=== PATIENT | male | born 1995 | race Caucasian/White ===

== ENCOUNTER 2020-04-11 17:05 | Emergency (ER) | payer MEDICAID ==
[~2020-04-11] VITALS: Ht 182.9 cm; Wt 72.7 kg
[~2020-04-11 17:05] MED LIST: BACLOFEN10 MG PO; VISTARIL25 MG PO
[2020-04-11 17:17] VITALS: Ht 182.9 cm; Wt 72.7 kg
[2020-04-11 17:58] LABS: BILIRUBIN NEGATIVE (NEGATIVE); KETONE NEGATIVE (NEGATIVE); NITRITE NEGATIVE (NEGATIVE); UROBILINOGEN NORMAL mg/dL (< 2)
[2020-04-11 17:59] LABS: BASOPHILS 0.4 % (0-2); EOSINOPHILS 6.6 % (0-7); HEMATOCRIT 45.2 % (42.0-54.0); HEMOGLOBIN 15.5 g/dL (13.5-17.5); IMMATURE GRANULOCYTES 0.1 % (0-5); LYMPHOCYTE ABS# 2.12 10x3/uL (1.32-3.57); LYMPHOCYTES 31.7 % (15-50); MCH 31.5 pg (26.0-34.0); MCHC 34.3 g/dL (31.0-37.0); MCV 91.9 fL (80.0-100.0); MEAN PLATELET VOLUME 11.6 fL (7.4-10.4); MONOCYTES 5.5 % (2-11); NEUTROPHIL ABS# 3.71 10x3/uL (1.78-5.38); NEUTROPHILS 55.7 % (40-80); PLATELET COUNT 183 10x3/uL (130-400); RBC 4.92 10x6/uL (4.20-6.10); WBC 6.7 10x3/uL (4.8-10.8)
[2020-04-11 18:06] LABS: UDS - AMPHET NEGATIVE QUAL (NEGATIVE); UDS - BARB NEGATIVE QUAL (NEGATIVE); UDS - BENZO NEGATIVE QUAL (NEGATIVE); UDS - COCAINE NEGATIVE QUAL (NEGATIVE); UDS - OPIATE NEGATIVE QUAL (NEGATIVE); UDS - PCP NEGATIVE QUAL (NEGATIVE); UDS - THC POSITIVE QUAL (NEGATIVE)
--- NOTE | 2020-04-11 18:09 | NUR ---
pPer interview [facility] Patient, He said he has an active DX of schizophrenia and has been off his meds for "a few days". He is hesitant to answer all the questions on the risk assessment. He is moving contstantly from bed to w/c and back. [facility] a counselor [facility] I spoke to the charge nurse and she states they are waiting on labs but more than likely, he is going to get a referral out. We are placing a one to one sitter with patient at this time.
[2020-04-11 18:31] LABS: CALC OSMOLALITY 281 mosm/kg (275-300); CALCIUM 9.1 mg/dL (8.5-10.1); CARBON DIOXIDE 27.1 mmol/L (21.0-32.0); CHLORIDE - SERUM 105 mmol/L (98-107); CREATININE - SERUM 0.9 mg/dL (0.6-1.3); GLUCOSE 96 mg/dL (74-106); POTASSIUM - SERUM 4.2 mmol/L (3.5-5.1); SODIUM 142 mmol/L (136-145); UREA NITROGEN 10 mg/dL (7-18); eGFR NON AFRICAN AMERICAN > 90 mL/min (90-120)
[2020-04-11 18:37] LABS: ALBUMIN 4.2 g/dL (3.4-5.0); ALKALINE PHOSPHATASE 91 U/L (30-120); ALT (SGPT) 34 U/L (10-68); BILIRUBIN - TOTAL 0.15 mg/dL (0.2-1.3); PROTEIN - SERUM 7.6 g/dL (6.4-8.2)
[2020-04-11 21:44] VITALS: BP 118/71
[2020-04-11 23:07] LABS: SARS-CoV-2 ANTIGEN NEGATIVE- SARS-COV-2 (NEGATIVE)
== END 2020-04-12 00:47 ==
LOC: D.ER 17:05
PROVIDERS: Emergency Medicine; Family Medicine
DX: F20.9 Schizophrenia, unspecified (principal); R45.851 Suicidal ideations; F22 Delusional disorders; F10.129 Alcohol abuse with intoxication, unspecified; Y90.6 Blood alcohol level of 120-199 mg/100 ml

== ENCOUNTER 2020-06-10 18:58 | Emergency (ER) | payer MEDICAID ==
[~2020-06-10] VITALS: Ht 182.9 cm; Wt 77.3 kg
[2020-06-10 19:14] VITALS: BP 142/88; Ht 182.9 cm; Wt 77.3 kg
[2020-06-10] MEDS ORDERED: INVEGA1.5 MG PO (19:15)
[2020-06-10] MEDS ORDERED: SEROQUEL XR400 M1 PO (19:16)
[2020-06-10] MEDS ORDERED: LITHIUM CARBON150 MG PO (19:16)
[2020-06-10] MEDS ORDERED: CYMBALTA20 MG PO (19:16)
[2020-06-10] MEDS ORDERED: NEURONTIN800 MG PO (19:17)
[2020-06-10] MEDS ORDERED: VENTOLIN HFA [SP8 GM INH (20:42)
[2020-06-10] MEDS ORDERED: AUGMENTIN 875-11 TAB PO (20:42)
== END 2020-06-10 21:34 | disposition home or self-care (01) ==
LOC: D.ER 18:58
DX: J06.9 Acute upper respiratory infection, unspecified (principal); J45.909 Unspecified asthma, uncomplicated; Z72.0 Tobacco use

== ENCOUNTER 2020-06-13 15:51 | Emergency (ER) | payer MEDICAID ==
[~2020-06-13] VITALS: Ht 182.9 cm; Wt 77.3 kg
[~2020-06-13 15:51] MED LIST changes: +AUGMENTIN 875-11 TAB PO; +CYMBALTA20 MG PO; +INVEGA1.5 MG PO; +LITHIUM CARBON150 MG PO; +NEURONTIN800 MG PO; +SEROQUEL XR400 M1 PO; +VENTOLIN HFA [SP8 GM INH
[2020-06-13 16:06] VITALS: Ht 182.9 cm; Wt 77.3 kg
[2020-06-13 21:13] LABS: BASOPHILS 0.2 % (0-2); EOSINOPHILS 11.3 % (0-7); HEMATOCRIT 39.3 % (42.0-54.0); HEMOGLOBIN 13.4 g/dL (13.5-17.5); IMMATURE GRANULOCYTES 0.6 % (0-5); LYMPHOCYTE ABS# 1.63 10x3/uL (1.32-3.57); LYMPHOCYTES 18.4 % (15-50); MCH 30.7 pg (26.0-34.0); MCHC 34.1 g/dL (31.0-37.0); MCV 89.9 fL (80.0-100.0); MEAN PLATELET VOLUME 11.4 fL (7.4-10.4); NEUTROPHIL ABS# 5.29 10x3/uL (1.78-5.38); NEUTROPHILS 59.5 % (40-80); PLATELET COUNT 169 10x3/uL (130-400); RBC 4.37 10x6/uL (4.20-6.10); RDW 13.4 % (11.5-14.5); WBC 8.9 10x3/uL (4.8-10.8)
[2020-06-13 21:21] LABS: CALC OSMOLALITY 275 mosm/kg (275-300); CALCIUM 8.9 mg/dL (8.5-10.1); CARBON DIOXIDE 27.5 mmol/L (21.0-32.0); CHLORIDE - SERUM 103 mmol/L (98-107); CREATININE - SERUM 0.9 mg/dL (0.6-1.3); GLUCOSE 83 mg/dL (74-106); POTASSIUM - SERUM 3.5 mmol/L (3.5-5.1); SALICYLATES 2.9 mg/dL (2.8-20.0); SODIUM 140 mmol/L (136-145); UREA NITROGEN 7 mg/dL (7-18); eGFR NON AFRICAN AMERICAN > 90 mL/min (90-120)
[2020-06-13 21:27] LABS: ALBUMIN 3.7 g/dL (3.4-5.0); ALKALINE PHOSPHATASE 102 U/L (30-120); ALT (SGPT) 21 U/L (10-68); BILIRUBIN - TOTAL 0.25 mg/dL (0.2-1.3); PROTEIN - SERUM 7.1 g/dL (6.4-8.2)
--- NOTE | 2020-06-13 21:27 | NUR ---
PATIENT IN ER 20 THAT REPORTS THAT HE IS SUICIDIAL AND HE SAYS HE IS JUST LOW RIGHT NOW. 1-800 NUMBER GIVEN FOR FUTURE REFERENCE. HE WILL BE PLACED ON ONE TO ONE.
[2020-06-13 21:33] LABS: BILIRUBIN NEGATIVE (NEGATIVE); KETONE NEGATIVE (NEGATIVE); NITRITE NEGATIVE (NEGATIVE); UROBILINOGEN NORMAL mg/dL (< 2)
[2020-06-13 21:34] LABS: UDS - AMPHET NEGATIVE QUAL (NEGATIVE); UDS - BARB NEGATIVE QUAL (NEGATIVE); UDS - BENZO NEGATIVE QUAL (NEGATIVE); UDS - COCAINE NEGATIVE QUAL (NEGATIVE); UDS - OPIATE NEGATIVE QUAL (NEGATIVE); UDS - PCP NEGATIVE QUAL (NEGATIVE); UDS - THC POSITIVE QUAL (NEGATIVE)
[2020-06-13 23:23] VITALS: BP 146/95
[2020-06-14 00:52] LABS: SARS-CoV-2 ANTIGEN NEGATIVE- SARS-COV-2 (NEGATIVE)
[2020-06-14] MEDS ORDERED: ALBUTEROL SULF8.5 GM INH (03:58)
[2020-06-14] MEDS ORDERED: AUGMENTIN 875-11 TAB PO (03:58)
== END 2020-06-14 04:56 ==
LOC: D.ER 15:51
PROVIDERS: Emergency Medicine
DX: R45.851 Suicidal ideations (principal); R05 Cough; F32.9 Major depressive disorder, single episode, unspecified; R06.02 Shortness of breath; J45.909 Unspecified asthma, uncomplicated; Z72.0 Tobacco use